=== PATIENT | female | born 1935 | race Caucasian/White ===

== ENCOUNTER 2019-07-19 07:30 | Inpatient (IN) | payer OTHER ==
[~2019-07-19] VITALS: Ht 154.9 cm; Wt 60.8 kg
[2019-07-19] MEDS ORDERED: LOSARTAN POTASS50 MG PO (09:00)
[2019-07-19] MEDS ORDERED: ROSUVASTATIN PO (09:01)
[2019-07-19] MEDS ORDERED: BONIVA150 MG PO (09:02)
[2019-07-22] MEDS ORDERED: CRESTOR5 MG PO (08:01)
== END 2019-07-24 12:57 | disposition home or self-care (01) | DRG 737 ==
LOC: ADM 07:30 → OB/GYN 07-22 06:30 → O/R 07-22 06:30 → SURH 07-22 07:00 → ADM 07-22 07:30 → EDSTATUS 07-22 07:30 → SURH 07-22 07:30 → OB/GYN 07-22 13:06
PROVIDERS: ADMIT Obstetrics & Gynecology Gynecologic Oncology
PROC: 0UT70ZZ Resection of Bilateral Fallopian Tubes, Open Approach (ICD-10-PCS; 2019-07-22)
PROC: 0UT20ZZ Resection of Bilateral Ovaries, Open Approach (ICD-10-PCS; 2019-07-22)
PROC: 0DBU0ZZ Excision of Omentum, Open Approach (ICD-10-PCS; 2019-07-22)
PROC: 0UT90ZZ Resection of Uterus, Open Approach (ICD-10-PCS; principal; 2019-07-22 07:00)
DX: C56.2 Malignant neoplasm of left ovary (principal); R18.8 Other ascites; D25.1 Intramural leiomyoma of uterus; N72 Inflammatory disease of cervix uteri; N83.311 Acquired atrophy of right ovary; K66.8 Other specified disorders of peritoneum; I10 Essential (primary) hypertension

== ENCOUNTER 2023-05-24 11:19 | Emergency (ER) | payer OTHER ==
[~2023-05-24] VITALS: Ht 152.4 cm; Wt 54.4 kg
[~2023-05-24 11:19] MED LIST: BONIVA150 MG PO; CRESTOR5 MG PO; LOSARTAN POTASS50 MG PO; ROSUVASTATIN PO
[2023-05-24 13:10] LABS: HEMATOCRIT 33.6 % (36.0-45.00); HEMOGLOBIN 11.4 g/dL (12.0-15.00); MEAN CELL VOLUME 100.1 fL (80.00-100.00); MEAN CORPUSCULAR HEMOGLOBIN 33.9 pg (27.00-32.0); MEAN CORPUSCULAR HGB CONC 33.9 g/dl (32.0-36.0); PLATELET COUNT 256 K/uL (150-450); RED BLOOD COUNT 3.36 M/uL (4.00-6.00); RED CELL DISTRIBUTION WIDTH 14.8 % (11.5-14.5)
[2023-05-24 13:14] LABS: ERYTHROCYTE SEDIMENTATION RATE 77 mm/hr
[2023-05-24 13:28] LABS: INR 1.04; PARTIAL THROMBOPLASTIN TIME 27.5 SECONDS (22.0-34.0); PROTHROMBIN TIME 10.9 SECONDS (9.0-11.5)
[2023-05-24 13:42] LABS: ALBUMIN 3.8 gm/dL (3.4-5.0); BILIRUBIN TOTAL 0.6 mg/dL (0.3-1.2); CALCIUM 9.3 mg/dL (8.5-10.1); CREATININE SERUM 1.05 mg/dL (0.55-1.02); GFR 49.69; GLOBULINA 3.6 G/DL (2.4-3.5); POTASSIUM 4.44 mEq/L (3.5-5.1); TOTAL PROTEIN 7.4 gm/dL (6.4-8.2)
[2023-05-24 13:44] LABS: C-REACTIVE PROTEIN 0.4 MG/DL (0.00-0.29)
[2023-05-24 13:47] LABS: PH,URINE 5.5 (5.0-8.0); URINE APPEARANCE Clear; URINE BILIRRUBIN Negative (NEGATIVE); URINE BLOOD Trace; URINE COLOR Yellow; URINE GLUCOSE Negative (NEGATIVE); URINE LEUKOCYTE Trace; URINE NITRATE Negative; URINE PROTEIN Negative (NEGATIVE); URINE UROBILINOGEN 0.2 E.U./dl
[2023-05-24 13:50] LABS: URINE BACTERIA 414.3 uL (0.0-1933); URINE EPITHELIAL CELLS 9.4 uL (0.0-38.8); URINE RBC 11.2 uL (0.0-20.8); URINE WBC 27.9 uL (0.0-23.2)
== END 2023-05-24 20:18 | disposition home or self-care (01) ==
LOC: ER 11:19
PROVIDERS: General Practice
DX: K57.32 Diverticulitis of large intestine without perforation or abscess without bleeding (principal); R10.32 Left lower quadrant pain; Z85.89 Personal history of malignant neoplasm of other organs and systems; Z90.5 Acquired absence of kidney; I10 Essential (primary) hypertension
CPT/HCPCS: 36415; 74176; 96365; 96366; 99284; J2405; J7030

== ENCOUNTER 2023-06-02 08:19 | Emergency (ER) | payer OTHER ==
[~2023-06-02] VITALS: Ht 152.4 cm; Wt 54.0 kg
[2023-06-02] MEDS ORDERED: EZALLOR SPRINKLE5 MG PO (08:35)
[2023-06-02 09:20] LABS: HEMATOCRIT 34.8 % (36.0-45.00); HEMOGLOBIN 11.9 g/dL (12.0-15.00); MEAN CELL VOLUME 100.4 fL (80.00-100.00); MEAN CORPUSCULAR HEMOGLOBIN 34.3 pg (27.00-32.0); MEAN CORPUSCULAR HGB CONC 34.1 g/dl (32.0-36.0); PLATELET COUNT 282 K/uL (150-450); RED BLOOD COUNT 3.46 M/uL (4.00-6.00); RED CELL DISTRIBUTION WIDTH 15.1 % (11.5-14.5)
[2023-06-02 09:51] LABS: CALCIUM 9.2 mg/dL (8.5-10.1); CREATININE SERUM 0.91 mg/dL (0.55-1.02); GFR 58.61; POTASSIUM 3.86 mEq/L (3.5-5.1)
[2023-06-02 11:15] LABS: PH,URINE 5.5 (5.0-8.0); URINE APPEARANCE Clear; URINE BILIRRUBIN Negative (NEGATIVE); URINE BLOOD NHT; URINE COLOR Yellow; URINE GLUCOSE Negative (NEGATIVE); URINE LEUKOCYTE Trace; URINE NITRATE Negative; URINE PROTEIN Trace (NEGATIVE)
[2023-06-02 11:18] LABS: URINE BACTERIA 186.4 uL (0.0-1933); URINE RBC 16.9 uL (0.0-20.8); URINE WBC 24.8 uL (0.0-23.2)
== END 2023-06-02 14:16 | disposition home or self-care (01) ==
LOC: ER 08:19
PROVIDERS: Emergency Medicine
DX: R10.32 Left lower quadrant pain (principal)
CPT/HCPCS: 36415; 96365; 96366; 99282; J1885; J3490; J7030

== ENCOUNTER 2023-06-11 11:30 | Inpatient (IN) | payer OTHER ==
[~2023-06-11] VITALS: Ht 152.4 cm; Wt 54.4 kg
[~2023-06-11 11:30] MED LIST changes: +EZALLOR SPRINKLE5 MG PO
[2023-06-11] MEDS ORDERED: TRAMADOL HCL E300 M1 PO (13:00)
[2023-06-11] MEDS ORDERED: PANADOL EXTRA500 MG PO (13:01)
[2023-06-11] MEDS ORDERED: COZAAR100 MG PO (13:01)
[2023-06-11] MEDS ORDERED: CRESTOR5 MG PO (13:01)
[2023-06-11] MEDS ORDERED: [UNRECOGNIZED DRUG - OTHER] PO (13:02)
[2023-06-16 20:13] LABS: HEMOGLOBIN 10.3 g/dL (12.0-15.00); MEAN CELL VOLUME 100.7 fL (80.00-100.00); MEAN CORPUSCULAR HEMOGLOBIN 34.6 pg (27.00-32.0); MEAN CORPUSCULAR HGB CONC 34.3 g/dl (32.0-36.0); PLATELET COUNT 231 K/uL (150-450); RED BLOOD COUNT 2.98 M/uL (4.00-6.00); RED CELL DISTRIBUTION WIDTH 15.4 % (11.5-14.5)
[2023-06-16 20:35] LABS: CALCIUM 8.6 mg/dL (8.5-10.1); CREATININE SERUM 0.9 mg/dL (0.55-1.02); GFR 59.37; MAGNESIUM 1.8 mg/dL (1.8-2.4); PHOSPHOROUS 2.8 mg/dL (2.5-4.9); POTASSIUM 4.35 mEq/L (3.5-5.1)
[2023-06-17 08:05] LABS: HEMATOCRIT 25.4 % (36.0-45.00); MEAN CELL VOLUME 101.9 fL (80.00-100.00); MEAN CORPUSCULAR HEMOGLOBIN 35.3 pg (27.00-32.0); MEAN CORPUSCULAR HGB CONC 34.6 g/dl (32.0-36.0); PLATELET COUNT 200 K/uL (150-450); RED BLOOD COUNT 2.49 M/uL (4.00-6.00); RED CELL DISTRIBUTION WIDTH 14.9 % (11.5-14.5)
[2023-06-17 08:08] LABS: HEMOGLOBIN 8.8 g/dL (12.0-15.00)
[2023-06-17 08:41] LABS: ALBUMIN 2.5 gm/dL (3.4-5.0); CALCIUM 7.9 mg/dL (8.5-10.1); CREATININE SERUM 0.82 mg/dL (0.55-1.02); GFR 66.1; MAGNESIUM 1.8 mg/dL (1.8-2.4); PHOSPHOROUS 2.5 mg/dL (2.5-4.9); POTASSIUM 4.22 mEq/L (3.5-5.1)
[2023-06-19] MEDS ORDERED: KETO10TA2 (13:48)
[2023-06-19] MEDS ORDERED: KETOROLAC TROME10 MG (13:48)
[2023-06-19 14:56] LABS: HEMATOCRIT 37.2 % (36.0-45.00); MEAN CELL VOLUME 95.2 fL (80.00-100.00); MEAN CORPUSCULAR HEMOGLOBIN 32.7 pg (27.00-32.0); MEAN CORPUSCULAR HGB CONC 34.4 g/dl (32.0-36.0); PLATELET COUNT 214 K/uL (150-450); RED BLOOD COUNT 3.91 M/uL (4.00-6.00); RED CELL DISTRIBUTION WIDTH 17.1 % (11.5-14.5)
[2023-06-19 15:02] LABS: HEMOGLOBIN 12.8 g/dL (12.0-15.00)
[2023-06-19 15:18] LABS: CALCIUM 8.6 mg/dL (8.5-10.1); CREATININE SERUM 0.72 mg/dL (0.55-1.02); GFR 76.8; MAGNESIUM 1.9 mg/dL (1.8-2.4); POTASSIUM 3.96 mEq/L (3.5-5.1)
[2023-06-20] MEDS ORDERED: TRAM1TAB98 PO (08:58)
[2023-06-20] MEDS ORDERED: INTESTINEX680 M1 PO (08:58)
[2023-06-20] MEDS ORDERED: PEPCID AC20 MG PO (08:58)
== END 2023-06-20 17:00 | disposition home or self-care (01) | DRG 330 ==
LOC: O/R 06-16 09:40 → SURH 06-16 11:30 → SURG 06-16 18:18 → SURH 06-16 19:00
PROVIDERS: Internal Medicine Geriatric Medicine; ADMIT Surgery; ATTEND Surgery
PROC: 0DBP4ZZ Excision of Rectum, Percutaneous Endoscopic Approach (ICD-10-PCS; 2023-06-16)
PROC: 07BC4ZZ Excision of Pelvis Lymphatic, Percutaneous Endoscopic Approach (ICD-10-PCS; 2023-06-16)
PROC: 0D1N4Z4 Bypass Sigmoid Colon to Cutaneous, Percutaneous Endoscopic Approach (ICD-10-PCS; 2023-06-16)
PROC: 0DNW4ZZ Release Peritoneum, Percutaneous Endoscopic Approach (ICD-10-PCS; 2023-06-16)
PROC: 3E0F7SF Introduction of Other Gas into Respiratory Tract, Via Natural or Artificial Opening (ICD-10-PCS; 2023-06-16)
PROC: 0DTN4ZZ Resection of Sigmoid Colon, Percutaneous Endoscopic Approach (ICD-10-PCS; principal; 2023-06-16 19:00)
PROC: 30233N1 Transfusion of Nonautologous Red Blood Cells into Peripheral Vein, Percutaneous Approach (ICD-10-PCS; 2023-06-17)
DX: K56.50 Intestinal adhesions [bands], unspecified as to partial versus complete obstruction (principal); C56.2 Malignant neoplasm of left ovary; C78.6 Secondary malignant neoplasm of retroperitoneum and peritoneum; D12.7 Benign neoplasm of rectosigmoid junction; K57.30 Diverticulosis of large intestine without perforation or abscess without bleeding; R59.0 Localized enlarged lymph nodes; D64.89 Other specified anemias; R97.0 Elevated carcinoembryonic antigen [CEA]; R93.5 Abnormal findings on diagnostic imaging of other abdominal regions, including retroperitoneum; R10.32 Left lower quadrant pain; R63.4 Abnormal weight loss

== ENCOUNTER 2023-06-29 12:45 | Emergency (ER) | payer OTHER ==
[~2023-06-29] VITALS: Ht 152.4 cm; Wt 53.5 kg
[~2023-06-29 12:45] MED LIST changes: +COZAAR100 MG PO; +INTESTINEX680 M1 PO; +KETO10TA2; +KETOROLAC TROME10 MG; +PANADOL EXTRA500 MG PO; +PEPCID AC20 MG PO; +TRAM1TAB98 PO; +TRAMADOL HCL E300 M1 PO; +[UNRECOGNIZED DRUG - OTHER] PO
[2023-06-29 14:23] LABS: HEMATOCRIT 39.8 % (36.0-45.00); HEMOGLOBIN 13.2 g/dL (12.0-15.00); MEAN CELL VOLUME 98.1 fL (80.00-100.00); MEAN CORPUSCULAR HEMOGLOBIN 32.5 pg (27.00-32.0); MEAN CORPUSCULAR HGB CONC 33.1 g/dl (32.0-36.0); PLATELET COUNT 368 K/uL (150-450); RED BLOOD COUNT 4.06 M/uL (4.00-6.00); RED CELL DISTRIBUTION WIDTH 16.9 % (11.5-14.5)
[2023-06-29 14:41] LABS: CALCIUM 9.4 mg/dL (8.5-10.1); CREATININE SERUM 0.82 mg/dL (0.55-1.02); GFR 66.1; POTASSIUM 3.73 mEq/L (3.5-5.1)
[2023-06-29 15:54] LABS: PH,URINE 5.5 (5.0-8.0); URINE APPEARANCE Clear; URINE BILIRRUBIN Negative (NEGATIVE); URINE BLOOD Negative; URINE COLOR Yellow; URINE GLUCOSE Negative (NEGATIVE); URINE LEUKOCYTE Negative; URINE NITRATE Negative; URINE PROTEIN Trace (NEGATIVE); URINE UROBILINOGEN 0.2 E.U./dl
[2023-06-29 15:58] LABS: URINE BACTERIA 50.3 uL (0.0-1933); URINE EPITHELIAL CELLS 16.3 uL (0.0-38.8); URINE RBC 6.8 uL (0.0-20.8); URINE WBC 6.1 uL (0.0-23.2)
== END 2023-06-29 16:40 | disposition home or self-care (01) ==
LOC: ER 12:45
PROVIDERS: General Practice
DX: R10.9 Unspecified abdominal pain (principal); I10 Essential (primary) hypertension; Z93.3 Colostomy status
CPT/HCPCS: 36415; 74176; 96372; 99284; J3490

== ENCOUNTER 2023-08-15 14:41 | Inpatient (IN) | payer OTHER ==
[~2023-08-15] VITALS: Ht 154.9 cm; Wt 47.6 kg
[2023-08-15] MEDS ORDERED: FENTORA400 MCG BC (15:23)
[2023-08-15 16:40] LABS: HEMATOCRIT 32.4 % (36.0-45.00); HEMOGLOBIN 10.8 g/dL (12.0-15.00); MEAN CELL VOLUME 98.4 fL (80.00-100.00); MEAN CORPUSCULAR HEMOGLOBIN 32.9 pg (27.00-32.0); MEAN CORPUSCULAR HGB CONC 33.5 g/dl (32.0-36.0); PLATELET COUNT 235 K/uL (150-450); RED BLOOD COUNT 3.29 M/uL (4.00-6.00); RED CELL DISTRIBUTION WIDTH 17.3 % (11.5-14.5)
[2023-08-15 17:08] LABS: ALBUMIN 3.3 gm/dL (3.4-5.0); BILIRUBIN TOTAL 0.81 mg/dL (0.3-1.2); CALCIUM 9.4 mg/dL (8.5-10.1); CREATININE SERUM 3.58 mg/dL (0.55-1.02); GFR 12.07; GLOBULINA 4.2 G/DL (2.4-3.5); POTASSIUM 4.47 mEq/L (3.5-5.1); TOTAL PROTEIN 7.5 gm/dL (6.4-8.2)
[2023-08-15 18:15] LABS: PH,URINE 7.5; URINE BLOOD LARGE; URINE LEUKOCYTE LARGE; URINE NITRATE POSITIVE
[2023-08-15 18:18] LABS: URINE APPEARANCE BLOODY; URINE BILIRRUBIN LARGE (NEGATIVE); URINE COLOR RED; URINE GLUCOSE >=1000 MG/DL (NEGATIVE); URINE PROTEIN >=300 (NEGATIVE); URINE UROBILINOGEN >= 8.0 E.U./dl
[2023-08-15 18:22] LABS: URINE RBC LOADED /HPF
[2023-08-15 18:23] LABS: URINE EPITHELIAL CELLS 0-4 /HPF
[2023-08-15 18:24] LABS: URINE BACTERIA MODERATE; URINE WBC 13-20 /hpf
[2023-08-16 02:16] LABS: INR 1.17; PARTIAL THROMBOPLASTIN TIME 29.4 SECONDS (22.0-34.0); PROTHROMBIN TIME 12.1 SECONDS (9.0-11.5)
[2023-08-16 05:36] LABS: HEMATOCRIT 26.7 % (36.0-45.00); HEMOGLOBIN 9.2 g/dL (12.0-15.00); MEAN CORPUSCULAR HEMOGLOBIN 33.6 pg (27.00-32.0); MEAN CORPUSCULAR HGB CONC 34.3 g/dl (32.0-36.0); PLATELET COUNT 197 K/uL (150-450); RED BLOOD COUNT 2.73 M/uL (4.00-6.00); RED CELL DISTRIBUTION WIDTH 17.2 % (11.5-14.5)
[2023-08-17 07:10] LABS: CALCIUM 8.3 mg/dL (8.5-10.1); CREATININE SERUM 2.06 mg/dL (0.55-1.02); GFR 22.83; POTASSIUM 3.73 mEq/L (3.5-5.1)
[2023-08-17 07:50] LABS: HEMATOCRIT 29.9 % (36.0-45.00); HEMOGLOBIN 10.2 g/dL (12.0-15.00); MEAN CELL VOLUME 95.9 fL (80.00-100.00); MEAN CORPUSCULAR HEMOGLOBIN 32.8 pg (27.00-32.0); MEAN CORPUSCULAR HGB CONC 34.2 g/dl (32.0-36.0); PLATELET COUNT 218 K/uL (150-450); RED BLOOD COUNT 3.12 M/uL (4.00-6.00); RED CELL DISTRIBUTION WIDTH 17.1 % (11.5-14.5)
[2023-08-18 06:14] LABS: HEMOGLOBIN 10.3 g/dL (12.0-15.00); MEAN CELL VOLUME 95.7 fL (80.00-100.00); MEAN CORPUSCULAR HGB CONC 34.5 g/dl (32.0-36.0); PLATELET COUNT 226 K/uL (150-450); RED BLOOD COUNT 3.13 M/uL (4.00-6.00); RED CELL DISTRIBUTION WIDTH 17.1 % (11.5-14.5)
[2023-08-18 07:01] LABS: CALCIUM 7.7 mg/dL (8.5-10.1); CREATININE SERUM 1.32 mg/dL (0.55-1.02); GFR 38.16; POTASSIUM 3.42 mEq/L (3.5-5.1)
[2023-08-19 07:19] LABS: ALBUMIN 2.5 gm/dL (3.4-5.0); CALCIUM 7.4 mg/dL (8.5-10.1); CREATININE SERUM 1.06 mg/dL (0.55-1.02); GFR 49.15; PHOSPHOROUS 2.2 mg/dL (2.5-4.9); POTASSIUM 3.69 mEq/L (3.5-5.1)
[2023-08-20 07:26] LABS: ALBUMIN 1.8 gm/dL (3.4-5.0); CALCIUM 7.3 mg/dL (8.5-10.1); CREATININE SERUM 0.77 mg/dL (0.55-1.02); GFR 71.08; MAGNESIUM 2.5 mg/dL (1.8-2.4); POTASSIUM 3.32 mEq/L (3.5-5.1)
[2023-08-22 06:27] LABS: MEAN CELL VOLUME 96.4 fL (80.00-100.00); MEAN CORPUSCULAR HEMOGLOBIN 33.3 pg (27.00-32.0); MEAN CORPUSCULAR HGB CONC 34.5 g/dl (32.0-36.0); PLATELET COUNT 267 K/uL (150-450); RED CELL DISTRIBUTION WIDTH 16.8 % (11.5-14.5)
[2023-08-22 06:48] LABS: ALBUMIN 2.1 gm/dL (3.4-5.0); CALCIUM 8.2 mg/dL (8.5-10.1); CREATININE SERUM 0.93 mg/dL (0.55-1.02); GFR 57.16; MAGNESIUM 1.6 mg/dL (1.8-2.4); PHOSPHOROUS 2.8 mg/dL (2.5-4.9); POTASSIUM 4.51 mEq/L (3.5-5.1)
[2023-08-22] MEDS ORDERED: FENTANYL1 EAC4 (10:01)
[2023-08-22] MEDS ORDERED: FUSION PLUS CA1 EACH PO (13:08)
[2023-08-22] MEDS ORDERED: ABANEU-SL TABL1 EACH SL (13:08)
[2023-08-22] MEDS ORDERED: ACID-PEP20 MG PO (13:08)
[2023-08-22] MEDS ORDERED: FENTANYL1 EAC4 TD (13:08)
[2023-08-22] MEDS ORDERED: AMOX-CLAV 875-1 EAC1 PO (13:08)
[2023-08-22] MEDS ORDERED: TAMS0.4C PO (13:08)
== END 2023-08-22 16:24 | disposition home or self-care (01) | DRG 694 ==
LOC: ER 14:42 → MEDJ 22:09
PROVIDERS: General Practice; Internal Medicine; Internal Medicine Nephrology; ADMIT Internal Medicine Geriatric Medicine; ATTEND Internal Medicine Geriatric Medicine
PROC: BW21ZZZ Computerized Tomography (CT Scan) of Abdomen and Pelvis (ICD-10-PCS; 2023-08-15)
PROC: BT43ZZZ Ultrasonography of Bilateral Kidneys (ICD-10-PCS; 2023-08-15)
PROC: 0T9030Z Drainage of Right Kidney with Drainage Device, Percutaneous Approach (ICD-10-PCS; principal; 2023-08-16)
DX: N13.1 Hydronephrosis with ureteral stricture, not elsewhere classified (principal); C79.11 Secondary malignant neoplasm of bladder; C78.5 Secondary malignant neoplasm of large intestine and rectum; C77.9 Secondary and unspecified malignant neoplasm of lymph node, unspecified; C78.6 Secondary malignant neoplasm of retroperitoneum and peritoneum; C79.60 Secondary malignant neoplasm of unspecified ovary; G89.3 Neoplasm related pain (acute) (chronic); R10.31 Right lower quadrant pain; N39.0 Urinary tract infection, site not specified; N17.9 Acute kidney failure, unspecified; D64.89 Other specified anemias; B95.2 Enterococcus as the cause of diseases classified elsewhere; E87.6 Hypokalemia; I10 Essential (primary) hypertension; Z90.5 Acquired absence of kidney